=== PATIENT | male | born 1995 | race Caucasian/White ===

== ENCOUNTER 2018-06-08 06:18 | Emergency (ER) | payer OTHER ==
--- NOTE | 2018-06-08 07:05 | ED ---
Upper Extremity Pain - HPI Summary HPI Summary: Rt hand dominant pt here w/ Lt hand injury at work this morning. Middle finger got caught between to large wrenches and he has bruising under the nail now w/ pain along the finger, hand and wrist along palmar and dorsal aspects. Denies numbness,tingling, weakness. No skin breakdown or bleeding. Pt can still move finger however is painful - has some pain w/ wrist movement, but less than finger. Tried ibuprofen prior to arrival 600mg which is taking the edge off his pain - 3/10 at rest, 7/10 at worst. Ice and elevation are helping as well. - History of Current Complaint Chief Complaint: EDExtremityUpper Stated Complaint: LT HAND/WRIST INJURY Time Seen by Provider: 06/08/18 06:48 Hx Obtained From: Patient, Family/[employer] - mom, nurse - Allergies/Home Medications Allergies/Adverse Reactions: Allergies Allergy/AdvReac Type Severity Reaction Status Date / Time No Known Allergies Allergy Verified 06/08/18 07:16 Home Medications: Home Medications NK [No Home Medications Reported] 06/08/18 [History Confirmed 06/08/18] PMH/Surg Hx/FS Hx/Imm Hx Previously Healthy: Yes Endocrine/Hematology History: Denies: Hx Anticoagulant Therapy, Hx Blood Disorders Sensory History: Reports: Hx Contacts or Glasses Opthamlomology History: Reports: Hx Contacts or Glasses Infectious Disease History: No Infectious Disease History: Denies: Traveled Outside the [place] in Last 30 Days - Family History Known Family History: Positive: Diabetes - Social History Occupation: Employed Full-time - 3rd shift at [employer] Alcohol Use: Weekly - weekends Hx Substance Use: No Substance Use Type: Reports: None Hx Tobacco Use: Yes Smoking Status (MU): Never Smoked Tobacco Type: Smokeless Tobacco - 1/4 tin per day Review of Systems Constitutional: Negative Positive: no symptoms reported Positive: Myalgia, Decreased ROM - d/t pain. Negative: Edema Positive: Bruising - Lt middle finger nail bed Psychological: Normal All Other Systems Reviewed And Are Negative: Yes Physical Exam Triage Information Reviewed: Yes Vital Signs On Initial Exam: Initial Vitals Temp Pulse Resp BP Pulse Ox 97.8 F 82 16 154/93 100 06/08/18 06:20 06/08/18 06:20 06/08/18 06:20 06/08/18 06:20 06/08/18 06:20 Vital Signs Reviewed: Yes Appearance: Positive: Well-Appearing, Well-Nourished, Pain Distress - mild Skin: Positive: Warm, Skin Color Reflects Adequate Perfusion, Dry - ecchymosis under Lt middle finger nailbed Head/Face: Positive: Normal Head/Face Inspection Eyes: Positive: EOMI ENT: Positive: Hearing grossly normal Respiratory/Lung Sounds: Positive: Breath Sounds Present Cardiovascular: Positive: Pulses are Symmetrical in both Upper and Lower Extremities Musculoskeletal: Positive: Limited @ - strength intact however ROM limited d/t pain w/ finger flexion and extension as well as wrist movements (less in wrist) , Pain @ - Lt middle finger TTP Neurological: Positive: Normal, Sensory/Motor Intact, Alert, Oriented to Person Place, Time, CN Intact II-III Psychiatric: Positive: Normal Diagnostics - Vital Signs Vital Signs Temp Pulse Resp BP Pulse Ox 06/08/18 06:20 97.8 F 82 16 154/93 100 - Laboratory Lab Statement: Any lab studies that have been ordered have been reviewed, and results considered in the medical decision making process. Re-Evaluation - Re-Evaluation First Eval Change: Improved - nail pressure improved s/p nail trephination - pt tolerated well Course/Dx - Course Course Of Treatment: XR's: no fx, no dislocation, no effusions. Pt's pain/ stiffness/ROM improved prior to d/c. Will refrain from spliting in an effort to allow tendons/ligaments to heal and not atrophy/stiffen. Advised to rest and f/ u w/ hand specialist if sx persist or worsen. Pt and mom agree w/ plan. - Diagnoses Provider Diagnoses: Sprain of left hand, Subungual hematoma of left middle finger Discharge - Sign-Out/Discharge Documenting (check all that apply): Patient Departure - Discharge Plan Condition: Stable Disposition: HOME Patient Education Materials: Subungual Hematoma (ED), Hand Sprain (ED) Forms: *Work Release Referrals: [facility] [Outside] Debbie Andrea MD [Medical Doctor] - Additional Instructions: Rest, ice, elevate hand/wrist for 1 week. Follow-up with hand specialist in 1 week if symptoms persist or worsen - call today to schedule an appointment. For nail injury, see education and monitoring for signs of infection - seek medical attention if these present. - Billing Disposition and Condition Condition: STABLE Disposition: Home
--- NOTE | 2018-06-08 08:00 | RAD ---
INDICATION: Left hand and wrist pain after traumatic injury to the left middle finger COMPARISON: None. TECHNIQUE: 3 views left wrist and 3 views of the left hand. REPORT: The visualized bones are properly aligned and well corticated. The joint spaces are normal.There is no fracture, dislocation or other focal osseous abnormality. IMPRESSION: No radiographically apparent fracture or dislocation involving the left hand or wrist. If the patient's symptoms persist, follow-up imaging is recommended.
[2018-06-08 08:29] VITALS: BP 145/86
== END 2018-06-08 08:27 | disposition home or self-care (01) ==
LOC: ED 06:18
DX: S63.92XA Sprain of unspecified part of left wrist and hand, initial encounter (principal); S60.132A Contusion of left middle finger with damage to nail, initial encounter; W23.0XXA Caught, crushed, jammed, or pinched between moving objects, initial encounter; Y92.9 Unspecified place or not applicable
CPT/HCPCS: 99282